=== PATIENT | male | born 1960 | race Caucasian/White ===

== ENCOUNTER 2020-10-11 17:31 | Emergency (ER) | payer OTHER ==
[2020-10-11 18:16] LABS: BASOPHIL 0.5 % (0-2); EOSINOPHIL 1.1 % (0-5); HCT 43.5 % (42.0-52.0); HGB 14.6 g/dl (13.2-18.0); LYMPHOCYTE 14.5 % (15-48); MCH 31.1 pg (25.0-31.0); MCHC 33.6 g/dL (32.0-36.0); MCV 92.6 fL (78.0-100.0); MONOCYTE 9.8 % (0-12); MPV 10.3 fL (6.0-9.5); NEUTROPHIL 73.2 % (41-80); NRBC 0; PLT 272 K/uL (150-400); RDW 12.7 % (11.5-14.0); WBC 16.8 K/uL (4.0-10.5)
[2020-10-11 18:36] LABS: ALBUMIN 4.5 g/dL (3.4-5.0); BILIRUBIN - TOTAL 1.2 mg/dL (0.2-1.0); BUN/CREAT RATIO (CALC) 21.2 RATIO; CREATININE 1.37 mg/dL (0.67-1.17); POTASSIUM 4.1 mmol/L (3.5-5.1); TOTAL PROTEIN 8.5 g/dL (6.4-8.2)
[2020-10-11 19:11] LABS: LACTIC ACID 1.2 mmol/L (0.4-1.9)
[2020-10-11 19:46] LABS: BILIRUBIN NEGATIVE (NEGATIVE); BLOOD TRACE-INTACT Ery/uL (NEGATIVE); CLARITY CLEAR (CLEAR); COLOR YELLOW (YELLOW); GLUCOSE (U) NORMAL (NORMAL); LEUKOCYTES NEGATIVE Leu/uL (NEGATIVE); NITRITE NEGATIVE (NEGATIVE); PROTEIN NEGATIVE (NEGATIVE); SPECIFIC GRAVITY 1.025 (1.001-1.030)
[2020-10-11 19:55] LABS: URINARY RBC RARE
== END 2020-10-11 21:15 | disposition home or self-care (01) ==
LOC: FER 17:31
PROVIDERS: Nurse Practitioner Family
DX: E86.0 Dehydration (principal); E11.9 Type 2 diabetes mellitus without complications; I10 Essential (primary) hypertension
CPT/HCPCS: 36415; 80053; 81001; 82550; 83605; 85025; 99283; J7030

== ENCOUNTER 2021-12-27 21:35 | Emergency (ER) | payer OTHER ==
[2021-12-27 22:53] LABS: BASOPHIL 0.5 % (0-2); EOSINOPHIL 2.5 % (0-5); HCT 40.1 % (42.0-52.0); HGB 13.1 g/dl (13.2-18.0); LYMPHOCYTE 21.6 % (15-48); MCH 30.9 pg (25.0-31.0); MCHC 32.7 g/dL (32.0-36.0); MCV 94.6 fL (78.0-100.0); NEUTROPHIL 58.5 % (41-80); NRBC 0; PLT 274 K/uL (150-400); RBC 4.24 M/uL (4.70-6.00); RDW 12.8 % (11.5-14.0)
[2021-12-27 23:11] LABS: ALBUMIN 3.7 g/dL (3.4-5.0); BILIRUBIN - TOTAL 0.7 mg/dL (0.2-1.0); BUN/CREAT RATIO (CALC) 18.8 RATIO; CREATININE 0.8 mg/dL (0.67-1.17); GLOBULIN (CALCULATION) 3.8 g/dL; POTASSIUM 4.2 mmol/L (3.5-5.1); TOTAL PROTEIN 7.5 g/dL (6.4-8.2)
[2021-12-27 23:19] LABS: LACTIC ACID 1.3 mmol/L (0.4-1.9)
[2021-12-28] MEDS ORDERED: ONDANSETRON ODT4 MG PO ×2 (01:03→01:05)
== END 2021-12-28 01:15 | disposition home or self-care (01) ==
LOC: FER 21:35
PROVIDERS: Physician Assistant
DX: M25.521 Pain in right elbow (principal); E11.9 Type 2 diabetes mellitus without complications; E03.9 Hypothyroidism, unspecified; Z79.890 Hormone replacement therapy; Z79.84 Long term (current) use of oral hypoglycemic drugs
CPT/HCPCS: 36415; 73080; 80053; 83605; 85025

== ENCOUNTER 2022-01-13 17:37 | Emergency (ER) | payer OTHER ==
[~2022-01-13 17:37] MED LIST: ONDANSETRON ODT4 MG PO
== END 2022-01-13 18:13 | disposition home or self-care (01) ==
LOC: FER 17:37
DX: Z71.1 Person with feared health complaint in whom no diagnosis is made (principal); I10 Essential (primary) hypertension; E11.9 Type 2 diabetes mellitus without complications; E03.9 Hypothyroidism, unspecified; Z79.890 Hormone replacement therapy; Z79.899 Other long term (current) drug therapy